=== PATIENT | male | born 1995 | race Caucasian/White ===

== ENCOUNTER 2022-02-02 17:20 | Emergency (ER) | payer SELFPAY ==
[~2022-02-02] VITALS: Ht 180 cm; Wt 145.0 kg
--- NOTE | 2022-02-02 17:52 | ED Abdominal Pain ---
General Chief Complaint: Abdominal/GI Problems Stated Complaint: RLQ PAIN Nursing Triage Note: PT AMB TO RM 6 PT CO OF ABD PAIN MIDDLE AREA OF ABD JUST ABOVE UMBILICUS. RATES 3/10 INTERMITTENTLY. PT PAIN NOT REPRODUCABLE. PT STATES HAS HX OF IBS. PT IS VERY ANXIOUS AT THIS TIME D/T NEEDLE PHOBIA. DENIES N/V/D AT THIS X Source of Information: Patient Exam Limitations: No Limitations History of Present Illness Date Seen by Provider: Feb 02, 2022 Time Seen by Provider: 17:50 Initial Comments Patient is a 26-year-old male who is anxious on arrival presents ED for um bilicus pain. This started this morning. Described as sharp intermittent. No radiation. On arrival no current abdominal pain. Denies of any nausea, vomiting, diarrhea. Did have 1 loose stool today but did take prune juice. Takes prune juice for his IBS which does help with bowel movement. Usually has a bowel movement every other day. Denies any current chest pain, fever, sore throat, body aches, headache, dizziness, visual changes. Patient is currently on medication for acid reflux and spasmodic for his colon. Patient has no current pain on arrival. Patient has a needle photophobia. Allergies and Home Medications Patient Home Medication List Home Medication List Reviewed: Yes Review of Systems Review of Systems Constitutional: No chills, No diaphoresis EENTM: No Blurred Vision, No Double Vision, No Eye Pain, No Ear Pain, No Mouth Pain, No Mouth Swelling Respiratory: Denies Cough, Denies Shortness of Air Cardiovascular: Denies Chest Pain Gastrointestinal: Abdominal Pain; Denies Diarrhea, Denies Nausea, Denies Vomiting Genitourinary: Denies Burning, Denies Discharge Musculoskeletal: No back pain, No joint pain, No joint swelling, No muscle pain Skin: No change in color All Other Systems Reviewed Negative Unless Noted: Yes Past Otpgqyx-Aeyagr-Ojdhfx Hx Patient Social History Tobacco Use?: No Use of E-Cig and/or Vaping dev: Yes E-Cig or Vaping type used: Nicotine, CBD Use of E-Cig and/or Vaping Gonzalez: Current Everyday User Substance use?: Yes Additional substance use comme: THC Substance frequency: Daily Alcohol Use?: No Pt feels they are or have been: No Physical Exam Vital Signs Vital Signs - First Documented 02/02/22 17:25 Temp 37.0 Pulse 95 Resp 18 B/P (MAP) 176/100 (125) Pulse Ox 100 Capillary Refill : Less Than 3 Seconds Height/Weight/BMI Height: '" Weight: lbs. oz. kg; 44.00 BMI Method: General Appearance: WD/WN, no apparent distress HEENT: PERRL/EOMI, normal ENT inspection, TMs normal, pharynx normal Neck: non-tender, full range of motion, supple, normal inspection Respiratory: chest non-tender, lungs clear, normal breath sounds, no respiratory distress, no accessory muscle use Cardiovascular: regular rate, rhythm, no edema, no gallop, no JVD Gastrointestinal: normal bowel sounds, non tender, soft, no organomegaly Extremities: normal range of motion, non-tender, normal inspection, no pedal edema Back: normal inspection, no CVA tenderness Neurologic/Psychiatric: supervisor general II-XII nml as tested, no motor/sensory deficits, alert Skin: normal color, warm/dry Progress/Results/Core Measures Results/Orders Lab Results Laboratory Tests Test 02/02/22 17:55 Range/Units Urine Color YELLOW Urine Clarity CLEAR Urine pH 6.0 5-9 Urine Specific [place] <=1.005 1.016-1.022 Urine Protein TRACE H NEGATIVE Urine Glucose (UA) NEGATIVE NEGATIVE Urine Ketones NEGATIVE NEGATIVE Urine Nitrite NEGATIVE NEGATIVE Urine Bilirubin NEGATIVE NEGATIVE Urine Urobilinogen 0.2 < = 1.0 MG/DL Urine Leukocyte Esterase NEGATIVE NEGATIVE Urine RBC (Auto) NEGATIVE NEGATIVE Urine RBC NONE /HPF Urine WBC NONE /HPF Urine Squamous Epithelial Cells 2-5 /HPF Urine Crystals NONE /LPF Urine Bacteria NEGATIVE /HPF Urine Casts NONE /LPF Urine Mucus NEGATIVE /LPF Urine Culture Indicated NO My Orders Orders - YESSI RODNEY PA Ua Culture If Indicated (02/02/22 17:29) Cbc With Automated Diff (02/02/22 17:29) Comprehensive Metabolic Panel (02/02/22 17:29) Lipase (02/02/22 17:29) Iv/Invasive Line Insertion .IV start (02/02/22 17:29) Vital Signs/I&O 02/02/22 02/02/22 17:25 18:52 Temp 37.0 37.0 Pulse 95 95 Resp 18 18 B/P (MAP) 176/100 (125) 176/100 Pulse Ox 100 100 Blood Pressure Mean: 125 Departure Communication (PCP) Patient is highly anxious. Patient exam without any abdominal tenderness. No vomiting or fever. Reports intermittent pain umbilicus. He does not appear in acute distress. Photophobia to needles and was refusing lab work. Discussed with patient recommend observation and if pain progress or worsen with tenderness on exam recommend lab work. Patient had no abdominal pain here. Reassess without abdominal tenderness. Urinalysis negative for infection. He is requesting to be discharged. Does have a history of IBS uses prune juice to help with bowel movements. Denies of any previous abdominal surgery. Patient states he will return if pain progress for further lab work. Discussed with patient that if this pain does increase he needs lab work and will help with his anxiety for the lab work. Patient was hypertensive on arrival 176/100. Reevaluate in 148/90. Discussed continue monitoring his blood pressure at home. Denies history of hypertension. Impression Primary Impression: Abdominal pain Additional Impression: Elevated blood pressure reading Disposition: 01 HOME, SELF-CARE Condition: Stable Departure-Patient Inst. Decision time for Depature: 18:49 Referrals: [facility] [place],LOCAL PHYSICIAN (PCP) Primary Care Physician Patient Instructions: Abdominal Pain, Adult ED YESSI RODNEY Feb 02, 2022 17:52
[2022-02-02 18:04] LABS: BILIRUBIN,URINE NEGATIVE (NEGATIVE); CLARITY,URINE CLEAR; COLOR,URINE YELLOW; GLUCOSE, URINE (UA) NEGATIVE (NEGATIVE); KETONES,URINE NEGATIVE (NEGATIVE); LEUKOCYTE ESTERASE ,URINE NEGATIVE (NEGATIVE); NITRITE,URINE NEGATIVE (NEGATIVE); PROTEIN,URINE TRACE (NEGATIVE)
[2022-02-02 18:14] LABS: BACTERIA,URINE NEGATIVE /HPF
[2022-02-02 18:52] VITALS: BP 176/100
== END 2022-02-02 18:52 | disposition home or self-care (01) ==
LOC: ER 17:23
DX: R10.31 Right lower quadrant pain (principal); R10.33 Periumbilical pain; R03.0 Elevated blood-pressure reading, without diagnosis of hypertension; K21.9 Gastro-esophageal reflux disease without esophagitis; F17.290 Nicotine dependence, other tobacco product, uncomplicated; Z87.19 Personal history of other diseases of the digestive system; Z79.899 Other long term (current) drug therapy
CPT/HCPCS: 81000; 99283